=== PATIENT | female | born 1985 | race Caucasian/White ===

== ENCOUNTER 2020-07-26 12:40 | Inpatient (IN) | payer OTHER ==
[2020-07-26] MEDS ORDERED: AMPICILLIN - 2 GM in SODIUM CHLORIDE 100 ML IVPB ONE (14:30)
[2020-07-26] MEDS ORDERED: BUTORPHANOL TARTRATE 1 MG/ML VIAL IVPUSH ONE (14:37)
[2020-07-26] MEDS ORDERED: PROMETHAZINE HCL 25 MG/1 ML VIAL IVPUSH ONE (14:37)
--- NOTE | 2020-07-26 14:37 | HP ---
Past Medical History - Primary Care Physician PCP:: Davide Jacobo - Admission Chief Complaint: 37 weeks, labor - Past Medical History Gastrointestinal: Yes: Other (gall bladder disease) Hepatobiliary: Yes: Cholecystitis ...: 3 ...Para: 1 ...Term: 1 ...: 0 ...Spon : 0 ...Induced : 1 ...Living Children: 1 ...LMP: 11/09/19 ... Weeks Gestation by Dates: 37.1 ...EDC by Dates: 08/15/20 ...EDC by Sono: 08/15/20 Musculoskeletal: Yes: Other (amputation of left finger) - Past Surgical History Past Surgical History: Yes: Cholecystectomy - Smoking History Smoking history: Never smoked - Alcohol/Substance Use Hx Alcohol Use: No History of Substance Use: reports: None Home Medications - Allergies Allergies/Adverse Reactions: Allergies Allergy/AdvReac Type Severity Reaction Status Date / Time shellfish derived Allergy Verified 07/26/20 13:12 Physical Exam - Maternity Vital Signs: Vital Signs Temperature 98.6 F 07/26/20 13:14 Pulse Rate 89 07/26/20 13:14 Respiratory Rate 19 07/26/20 13:14 Blood Pressure 134/76 07/26/20 13:14 O2 Sat by Pulse Oximetry (%)
[2020-07-26] MEDS ORDERED: AMPICILLIN SODIUM 2 GM VIAL ONE (14:42)
[2020-07-26] MEDS ORDERED: DEXTROSE 5%-LACTATED RINGERS 1,000 ML IV SCH (14:45)
[2020-07-26 14:56] VITALS: BMI 30.2
[2020-07-26 15:14] LABS: BASO % 0.5 % (0-2.0); EOS % 0.8 % (0-4.5); HEMATOCRIT 32.2 % (32.4-45.2); HEMOGLOBIN 10.6 GM/dL (10.7-15.3); LYMPH % 16.6 % (8-40); MCH 26.8 pg (25.7-33.7); MCHC 33.1 g/dl (32.0-36.0); MEAN CELL VOLUME 80.9 fl (80-96); MEAN PLT VOLUME 8.7 fl (7.5-11.1); MONO % 6.9 % (3.8-10.2); NEUT % 75.2 % (42.8-82.8); PLATELET COUNT 283 K/MM3 (134-434); RBC 3.98 M/mm3 (3.60-5.2); RDW 15.1 % (11.6-15.6); WHITE BLOOD COUNT 9.7 K/mm3 (4.0-10.0)
[2020-07-26 15:27] LABS: INR 0.93 (0.83-1.09)
[2020-07-26 15:29] LABS: ACTIVATED PTT 26.9 SECONDS (25.2-36.5)
[2020-07-26 15:43] LABS: BLOOD UREA NITROGEN 12.1 mg/dL (7-18); CALCIUM 8.4 mg/dL (8.5-10.1); CREATININE 0.8 mg/dL (0.55-1.3); POTASSIUM 4.2 mmol/L (3.5-5.1)
[2020-07-26] MEDS ORDERED: OXYTOCIN 20 UNITS in 0.9% NS 20 UNIT/1,000 ML INFUS.BAG IV ONE (15:43)
[2020-07-26] MEDS ORDERED: AMPICILLIN - 1 GM in SODIUM CHLORIDE 100 ML IVPB SCH (18:30)
[2020-07-26] MEDS ORDERED: BENZOCAINE 28 GM HEMORRHOIDAL OINTMENT TP PRN (18:44)
[2020-07-26] MEDS ORDERED: METHYLERGONOVINE MALEATE 0.2 MG/1 ML AMP IM PRN (18:44)
[2020-07-26] MEDS ORDERED: ACETAMINOPHEN 325 MG TABLET (FP) PO PRN (18:44)
[2020-07-26] MEDS ORDERED: BISACODYL 10 MG SUPP.RECT RC PRN (18:44)
[2020-07-26] MEDS ORDERED: WITCH HAZEL 50% (TUCKS) 40 PAD/JAR PAD TP PRN (18:44)
[2020-07-26] MEDS ORDERED: IBUPROFEN 600 MG TABLET (FP) PO PRN (18:44)
[2020-07-26] MEDS ORDERED: BENZOCAINE 20% 57 GM BOTTLE TP PRN (18:44)
[2020-07-26] MEDS ORDERED: OXYTOCIN 20 UNITS in 0.9% NS 20 UNIT/1,000 ML INFUS.BAG IV SCH (18:45)
--- NOTE | 2020-07-26 18:45 | PN ---
Delivery - Delivery Vaginal Delivery: Spontaneous (cx full head delivered , KYMBERLY, cord around neck 3 reduced , ant and post. 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
[2020-07-26] MEDS: FERROUS SO4 325 MG TABLET (FP) PO SCH (22:17)
[2020-07-27 08:37] LABS: BASO % 0.5 % (0-2.0); EOS % 0.7 % (0-4.5); HEMATOCRIT 34.9 % (32.4-45.2); HEMOGLOBIN 11.6 GM/dL (10.7-15.3); LYMPH % 17.8 % (8-40); MCH 27.2 pg (25.7-33.7); MCHC 33.4 g/dl (32.0-36.0); MEAN CELL VOLUME 81.5 fl (80-96); MEAN PLT VOLUME 8.7 fl (7.5-11.1); MONO % 6.6 % (3.8-10.2); NEUT % 74.4 % (42.8-82.8); PLATELET COUNT 260 K/MM3 (134-434); RBC 4.28 M/mm3 (3.60-5.2); WHITE BLOOD COUNT 11.1 K/mm3 (4.0-10.0)
--- NOTE | 2020-07-27 09:13 | PN ---
Post Progress Note - Subjective Subjective: no complains Post Day: 1 Type of Delivery: Vital Signs: Vital Signs Temperature 97.7 F 07/27/20 06:00 Pulse Rate 63 07/27/20 06:00 Respiratory Rate 18 07/27/20 06:00 Blood Pressure 115/80 07/27/20 06:00 O2 Sat by Pulse Oximetry (%) 99 07/26/20 17:15 Breast Exam: Yes: Soft, Other (Bf ). No: Engorged Uterus: Yes: Fundus Firm, Fundus below umbilicus, Non-tender Lochia: Yes: Rubra Lochia, amount: Moderate Extremities: Yes: Calves non-tender Perineum: Yes: Intact Activity: Ambulating - Labs Labs: CBC WBC 11.1 K/mm3 (4.0-10.0) H 07/27/20 08:03 RBC 4.28 M/mm3 (3.60-5.2) 07/27/20 08:03 Hgb 11.6 GM/dL (10.7-15.3) 07/27/20 08:03 Hct 34.9 % (32.4-45.2) 07/27/20 08:03 MCV 81.5 fl (80-96) 07/27/20 08:03 MCH 27.2 pg (25.7-33.7) 07/27/20 08:03 MCHC 33.4 g/dl (32.0-36.0) 07/27/20 08:03 RDW 15.0 % (11.6-15.6) 07/27/20 08:03 Plt Count 260 K/MM3 (134-434) 07/27/20 08:03 MPV 8.7 fl (7.5-11.1) 07/27/20 08:03 Absolute Neuts (auto) 8.3 K/mm3 (1.5-8.0) H 07/27/20 08:03 Neutrophils % 74.4 % (42.8-82.8) 07/27/20 08:03 Lymphocytes % 17.8 % (8-40) 07/27/20 08:03 Monocytes % 6.6 % (3.8-10.2) 07/27/20 08:03 Eosinophils % 0.7 % (0-4.5) 07/27/20 08:03 Basophils % 0.5 % (0-2.0) 07/27/20 08:03 Nucleated RBC % 0 % (0-0) 07/27/20 08:03 Problem List - Problems (1) Encounter for care after planned out of hospital delivery Code(s): Z39.2 - ENCOUNTER FOR ROUTINE FOLLOW-UP Assessment/Plan stable. pt requests discharge tomorrow.
[2020-07-27] MEDS: PRENATAL VITAMINS W/ FOLIC ACID TABLET (FP) PO SCH (10:08)
[2020-07-27] MEDS: FERROUS SO4 325 MG TABLET (FP) PO SCH ×2 (10:09→21:55)
[2020-07-27] MEDS ORDERED: SENNOSIDES/DOCUSATE COMBO (SENNA PLUS) TABLET (UD) PO PRN (22:00)
--- NOTE | 2020-07-28 08:16 | DS ---
Physical Examination Vital Signs: Vital Signs Temperature 98.6 F 07/27/20 22:00 Pulse Rate 79 07/27/20 22:00 Respiratory Rate 18 07/27/20 22:00 Blood Pressure 114/70 07/27/20 22:00 O2 Sat by Pulse Oximetry (%) 98 07/27/20 22:00 Constitutional: Yes: Well Nourished, No Distress, Calm Eyes: Yes: WNL, Conjunctiva Clear, EOM Intact HENT: Yes: WNL, Atraumatic, Normocephalic Neck: Yes: WNL, Supple, Trachea Midline Cardiovascular: Yes: WNL, Regular Rate and Rhythm Respiratory: Yes: WNL, Regular, CTA Bilaterally Gastrointestinal: Yes: WNL, Normal Bowel Sounds Musculoskeletal: Yes: WNL Extremities: Yes: WNL Edema: No Integumentary: Yes: WNL Neurological: Yes: WNL, Alert, Oriented ...Motor Strength: WNL Psychiatric: Yes: WNL Labs: CBC, BMP 07/27/20 08:03 07/26/20 14:40 Discharge Summary Problems reviewed: Yes Reason For Visit: LABOR ADMISSION Current Active Problems Encounter for care after planned out of hospital delivery (Acute) Hospital Course: Patient presented in labor She had an uncomplicated She met all milestones She was discharged home in stable condition Robert Greenberg MD Condition: Stable - Instructions Diet, Activity, Other Instructions: Regular Diet Follow up in 4 weeks for your visit Referrals: Davide Jacobo MD [Staff Physician] - Disposition: HOME - Home Medications Comprehensive Discharge Medication List: Ambulatory Orders Breast Pump 1 each MC 5XD 30 Days #1 each 07/27/20 Ibuprofen 600 mg PO Q6H PRN #30 tablet 07/27/20
[2020-07-28 08:59] VITALS: BP 108/72; PULSE 61; TEMP 97.9
[2020-07-28] MEDS: PRENATAL VITAMINS W/ FOLIC ACID TABLET (FP) PO SCH (09:45)
[2020-07-28] MEDS: FERROUS SO4 325 MG TABLET (FP) PO SCH (09:45)
== END 2020-07-28 14:05 | disposition home or self-care (01) | DRG 560 ==
LOC: JDEL 12:40 → JLDR 14:15 → J3W 18:00
PROVIDERS: ADMIT Obstetrics & Gynecology; ATTEND Obstetrics & Gynecology
PROC: 10E0XZZ Delivery of Products of Conception, External Approach (ICD-10-PCS; principal; 2020-07-26)
DX: O69.81X0 Labor and delivery complicated by cord around neck, without compression, not applicable or unspecified (principal); Z3A.37 37 weeks gestation of pregnancy; Z37.0 Single live birth; O99.824 Streptococcus B carrier state complicating childbirth; Z89.029 Acquired absence of unspecified finger(s); Z90.49 Acquired absence of other specified parts of digestive tract; Z91.013 Allergy to seafood
CPT/HCPCS: 36415; 59409; 80048; 85025; 85610; 85730; 86780; 86850; 86900; 86901; U0003